=== PATIENT | female | born 1955 | race African-American/Black ===

== ENCOUNTER 2021-10-09 23:33 | Emergency (ER) | payer MEDICAID ==
[~2021-10-09] VITALS: Ht 165.1 cm; Wt 70.0 kg
[2021-10-10 08:22] VITALS: BP 155/94
== END 2021-10-10 08:51 ==
LOC: ER 23:33
DX: R53.1 Weakness (principal); R42 Dizziness and giddiness; I10 Essential (primary) hypertension; F20.9 Schizophrenia, unspecified; Z88.8 Allergy status to other drugs, medicaments and biological substances
CPT/HCPCS: 93005; 99283

== ENCOUNTER 2022-11-07 06:59 | Emergency (ER) | payer MEDICARE, MEDICAID ==
[~2022-11-07] VITALS: Ht 167.6 cm; Wt 65.0 kg
[2022-11-07 07:01] VITALS: BP 157/96; PULSE 110; RESP 18; TEMP 97.5; O2SAT 96
[2022-11-07 07:58] LABS: BASOPHILS % 0.2 % (0.0-2.0); HEMATOCRIT. 36.1 % (36.0-48.0); HEMOGLOBIN. 12.1 g/dL (12.0-16.0); LYMPHOCYTES % 12.7 % (20.0-50.0); MEAN CORPUSCULAR HEMOGLOBIN 27.8 pg (28.0-32.0); MEAN CORPUSCULAR VOLUME 83.4 fL (81.0-99.0); MEAN PLATELET VOLUME 7.8 fl (7.4-10.4); MONOCYTES % 6.1 % (2.0-8.0); PLATELET 232 x1000/uL (130-400); RED BLOOD CELL COUNT 4.33 mill/uL (4.2-5.4); RED CELL DISTRIBUTION WIDTH 13.6 % (11.6-14.6)
[2022-11-07 08:12] LABS: CHLORIDE 105 mEq/L (98-107)
[2022-11-07 08:31] LABS: ETHANOL BLOOD < 10 mg/dL (-10)
== END 2022-11-07 09:55 ==
LOC: ER 07:05
DX: F14.129 Cocaine abuse with intoxication, unspecified (principal); I10 Essential (primary) hypertension; Z88.8 Allergy status to other drugs, medicaments and biological substances; Z86.59 Personal history of other mental and behavioral disorders; Z98.890 Other specified postprocedural states
CPT/HCPCS: 36415; 80053; 80320; 85025; 99283; G0480